=== PATIENT | female | born 1970 | race African-American/Black ===

== ENCOUNTER 2016-12-13 10:40 | Inpatient (IN) ==
[2016-12-13] MEDS ORDERED: NS 1,000 ML IV ONE ×2 (10:45→14:55)
[2016-12-13] MEDS ORDERED: NARCAN ONE (10:45)
[2016-12-13] MEDS ORDERED: NARCAN IV ONE (10:45)
[2016-12-13 10:59] LABS: MANUAL DIFF NEEDED? NO
[2016-12-13 11:02] LABS: ALLEN TEST YES; BE -1.4 mmoll (-3.0-3.0); BLOOD TYPE ARTERIAL; DRAW SITE R RADIAL; METHB 1.3 % (0.0-1.5); O2(CT) 14.5 mL/dL (15.0-23.0); PCO2(98.6) 47 mmHg (35-45); PO2(98.6) 80 mmHg (60-100); SAMPLE BLOOD; SAO2 97.8 % (95.0-100.0); THB 11.7 g/dL (11.5-17.4); pH(98.6) 7.33 (7.35-7.45)
[2016-12-13 11:06] LABS: MODALITY ROOM AIR
[2016-12-13 11:13] LABS: BASO% 0.2 % (0.0-0.8); EOS# 0.07 X1000 (0.0-0.7); EOS% 0.9 % (0.0-10.0); HEMATOCRIT 40.2 % (37.0-47.0); HEMOGLOBIN 13.1 g/dL (12.0-16.0); LYMPH# 5.38 X1000 (1.2-3.4); LYMPH% 65.5 % (20.5-51.1); MCH 32.1 PG (27-31); MCHC 32.6 g/dL (33-37); MCV 98.5 FL (81-99); MONO# 0.76 X1000 (0.11-0.59); MONO% 9.3 % (1.7-9.3); MPV 9.3 FL (7.4-10.4); NEUT% 24.1 % (42.2-75.2); PLT 295 X1000 (130-400); RBC 4.08 XMIL (4.2-5.4)
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
[2016-12-13 11:31] LABS: AGAP 14; ALBUMIN 4.2 g/dL (3.5-5.0); ALKALINE PHOSPHATASE 75 U/L (32-104); BUN 11 mg/dL (8-22); CHLORIDE 101 mmol/L (98-107); CK PROFILE 120 U/L (24-173); COSMO 277; GOT 18 U/L (10-30); GPT 15 U/L (10-36); POTASSIUM 3.4 mmol/L (3.5-5.1); SODIUM 138 mmol/L (136-145); TCO2 23 mmol/L (25-35); TOTAL BILIRUBIN 0.17 mg/dL (0.20-1.00); TOTAL PROTEIN 7.2 g/dL (6.3-8.3)
[2016-12-13 11:34] LABS: INR 0.95; PROTIME 10.1 Seconds (9.2-11.7); PTT 21.9 Seconds (22.0-36.0)
--- NOTE | 2016-12-13 13:01 | EKG Report ---
Test Performed on : 12/13/2016 10:41:26 AM Test Reason : AMS Blood Pressure : / mmHG Vent. Rate : 098 BPM Atrial Rate : 098 BPM P-R Int : 146 ms QRS Dur : 086 ms QT Int : 360 ms P-R-T Axes : 057 016 048 degrees QTc Int : 459 ms Normal sinus rhythm. Normal ECG When compared with ECG of 28-MAY-2013 04:28, QT has lengthened Unconfirmed Result
--- NOTE | 2016-12-13 13:59 | Diag Imaging Result Document ---
PROCEDURE NAME: CHEST-PORTABLE - 12/13/2016 PORTABLE CHEST X-RAY: COMPARISON: 05/28/2013. FINDINGS: There is some nonspecific right lower lobe infiltrate as seen by loss of the right diaphragm. Heart size and pulmonary vascularity is normal. No pneumothorax or pleural effusion. IMPRESSION: Nonspecific right lower lobe infiltrate.
--- NOTE | 2016-12-13 14:02 | Diag Imaging Result Document ---
PROCEDURE NAME: HEAD W/O CONTRAST - 12/13/[address]: A CT dose reduction protocol was used. COMPARISON: 05/28/2013 FINDINGS: The ventricles and sulci are normal in size and contour. There is no mass, hemorrhage, or evidence of acute ischemia. The bony calvaria is intact. The visualized paranasal sinuses and mastoid air cells are clear. IMPRESSION: Negative head CT. MTDD
[2016-12-13] MEDS ORDERED: D50W SYRINGE IV ONE (14:55)
[2016-12-13 14:58] LABS: URINE CULTURE NEEDED? NO; URINE MICRO REVIEW NEEDED? NO; URINE SOURCE CLEAN CATCH
[2016-12-13 15:10] LABS: BILIRUBIN URINE NEGATIVE (NEGATIVE); BLOOD URINE NEGATIVE (NEGATIVE); COLOR STRAW; GLUCOSE URINE NEGATIVE (NEGATIVE); LEUKOCYTES URINE NEGATIVE (NEGATIVE); NITRITE URINE NEGATIVE (NEGATIVE); PH URINE 6.5; PROTEIN URINE NEGATIVE (NEGATIVE); SP GRAVITY URINE 1.007; TURBIDITY URINE CLEAR (CLEAR); UROBILINOGEN URINE NORMAL (NORMAL)
[2016-12-13 15:12] LABS: UR EPITHELIAL CELLS <10 /HPF (<10); URINE BACTERIA 1+ /HPF; URINE RBC <10 /HPF (<10); URINE WBC <10 /HPF (<10)
[2016-12-13 15:19] LABS: UR AMPHETAMINES QUAL NONE DETECTED (NONE DETECT); UR BARBITUATES QUAL NONE DETECTED (NONE DETECT); UR BENZODIAZEPIN QUAL NONE DETECTED (NONE DETECT); UR CANNABINOIDS QUAL NONE DETECTED (NONE DETECT); UR COCAINE QUAL PRESUMPTIVE POSITIVE (NONE DETECT); UR METHADONE QUAL NONE DETECTED (NONE DETECT); UR OPIATES QUAL NONE DETECTED (NONE DETECT); UR OXYCODONE QUAL NONE DETECTED (NONE DETECT); UR PCP QUAL NONE DETECTED (NONE DETECT)
[2016-12-13] MEDS ORDERED: LEVAQUIN 750 MG/D5W 150 ML IV ONE (17:22)
[2016-12-13 19:35] LABS: CK INDEX 1.4 (0.0-2.5); CK-MB 2.71 ng/mL (0.0-5.0)
[2016-12-13] MEDS ORDERED: TYLENOL PO PRN (19:55)
[2016-12-13] MEDS ORDERED: FIORICET PO PRN (19:55)
[2016-12-13] MEDS ORDERED: NS 1,000 ML IV PRN (19:55)
[2016-12-13] MEDS ORDERED: ATIVAN IV PRN (20:48)
[2016-12-13] MEDS ORDERED: HUMULIN R SUBQ SCH (21:00)
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
[2016-12-14 06:03] LABS: MANUAL DIFF NEEDED? NO
[2016-12-14] MEDS: HUMULIN R (PARKWAY) SUBQ SCH ×3 (06:18→16:16)
[2016-12-14 06:33] LABS: AGAP 9; ALBUMIN 3.8 g/dL (3.5-5.0); ALKALINE PHOSPHATASE 62 U/L (32-104); BUN 18 mg/dL (8-22); CHLORIDE 108 mmol/L (98-107); COSMO 281; GOT 20 U/L (10-30); GPT 15 U/L (10-36); MAGNESIUM 2.1 mg/dL (1.5-2.7); POTASSIUM 4.2 mmol/L (3.5-5.1); SODIUM 140 mmol/L (136-145); TCO2 23 mmol/L (25-35); TOTAL BILIRUBIN < 0.15 mg/dL (0.20-1.00)
[2016-12-14 06:36] LABS: BASO% 0.2 % (0.0-0.8); EOS# 0.06 X1000 (0.0-0.7); HEMATOCRIT 37.5 % (37.0-47.0); IMM GRAN# 0.01 X1000 (0.0-0.04); IMM GRAN% 0.2 % (0.0-0.5); LYMPH# 3.53 X1000 (1.2-3.4); LYMPH% 56.6 % (20.5-51.1); MCH 31.6 PG (27-31); MCV 98.7 FL (81-99); MONO# 0.46 X1000 (0.11-0.59); MONO% 7.4 % (1.7-9.3); NEUT% 34.6 % (42.2-75.2); PLT 235 X1000 (130-400)
[2016-12-14] MEDS ORDERED: PRILOSEC PO SCH (07:00)
[2016-12-14] MEDS ORDERED: ASPIRIN PO SCH (09:00)
[2016-12-14] MEDS ORDERED: NORCO-10 PO PRN (11:15)
[2016-12-14] MEDS ORDERED: PHENERGAN PO PRN (11:15)
[2016-12-14] MEDS ORDERED: FLEXERIL PO PRN (11:15)
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
[2016-12-14 15:53] VITALS: BP 101/49
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
[2016-12-14] MEDS ORDERED: GLUCOPHAGE XR PO SCH (17:00)
[2016-12-14] MEDS ORDERED: LEVAQUIN PO SCH (18:00)
[2016-12-14] MEDS ORDERED: LEVAQUIN 750 MG/D5W 150 ML IV SCH ×2 (18:45)
[2016-12-14] MEDS ORDERED: PRAVACHOL PO SCH (21:00)
[2016-12-15] MEDS ORDERED: PRINIVIL PO SCH (09:00)
[2016-12-15] MEDS ORDERED: VALTREX PO SCH (09:00)
--- NOTE | 2016-12-15 16:20 | ECHO REPORT ---
ORDER DATE: 12/14/2016 ECHOCARDIOGRAPHIC MEASUREMENTS: 1. Interventricular septum 1. 2. Left ventricular posterior wall 1.3. 3. Diastolic diameter 4.5. 4. Left atrium 3.2. 5. Aorta 2.9. SUMMARY OF 2-DIMENSIONAL IMAGIN. Aortic valve leaflets are trileaflet. 2. Pulmonic valve was normal. 3. Mitral valve was normal. 4. Tricuspid valve was normal. 5. Normal left ventricular cavity size. Estimated ejection fraction of 60%. 6. Doppler studies revealed trace to mild mitral regurgitation. Trace tricuspid regurgitation. Peak velocity across the aortic valve less than 2 m/sec. There is no aortic stenosis or regurgitation. 7. There is no pericardial effusion or obvious intracardiac mass or thrombus seen. 8. There is no pericardial effusion or obvious intracardiac mass or thrombus seen. 9. There is no aortic stenosis or regurgitation. 10. Peak velocity across the tricuspid valve was 2.2 m/sec. There was trace tricuspid regurgitation.
== END 2016-12-14 17:00 | DRG 896 ==
LOC: EDBD → ED 10:40 → P.MEDSURG 19:48
PROVIDERS: ATTEND Family Medicine
DX: F14.188 Cocaine abuse with other cocaine-induced disorder (principal); J18.9 Pneumonia, unspecified organism; R55 Syncope and collapse; E11.9 Type 2 diabetes mellitus without complications; F31.9 Bipolar disorder, unspecified; I10 Essential (primary) hypertension; E78.5 Hyperlipidemia, unspecified; F17.210 Nicotine dependence, cigarettes, uncomplicated; F12.10 Cannabis abuse, uncomplicated; Z91.14 Patient's other noncompliance with medication regimen; Z79.82 Long term (current) use of aspirin; Z79.899 Other long term (current) drug therapy; Z79.84 Long term (current) use of oral hypoglycemic drugs
CPT/HCPCS: 70450; 71010; 80053; 81001; 82550; 82553; 82805; 82948; 83735; 84443; 84484; 85025; 85610; 85730; 93005; 93306; 94761; 96361; 96365; 96366; 96375; G0480; J2310; J7030; 80320; 80324; 80345; 80346; 80349; 80353; 80358; 80361; 80365; 83992